=== PATIENT | female | born 1945 | race Caucasian/White ===

== ENCOUNTER → 2016-11-18 | Outpatient (CLI) | payer MEDICARE, OTHER ==
--- NOTE | 2016-11-18 10:30 | US ---
EXAM DESCRIPTION: Thyroid CLINICAL HISTORY: 70 years, Female, THYROID NODULE COMPARISON: FINDINGS: Right lobe 4.2 x 1.2 x 1.8 cm. Left lobe 5.5 x 2.5 x 2.1 cm. Isthmus 3 mm. Several small hypoechoic nodules identified on the right. The largest upper portion measuring 7 x 9 x 6 mm. In the lower portion 5 x 5 x 4 mm hypoechoic nodule. On the left side a large complex mixed solid and cystic mass 3.2 x 2.8 x 3.0 cm. This large nodule shows slight peripheral vascularity but no definite calcification. IMPRESSION: Findings most compatible with multinodular goiter. The nodules in the right side appear almost certainly benign. Large left-sided nodule considered probably benign but follow-up would be recommended. Electronically signed by: Rd Phillip MD 11/18/2016 10:29 AM CDT
== END | disposition home or self-care (01) ==
LOC: US 13:13
PROVIDERS: ATTEND Family Medicine
DX: E04.1 Nontoxic single thyroid nodule (principal)

== ENCOUNTER → 2017-01-22 | Outpatient (CLI) | payer MEDICARE, OTHER | LOC: GMAJ 10:59 | PROVIDERS: ATTEND Family Medicine | DX: I10 Essential (primary) hypertension (principal) ==

== ENCOUNTER → 2017-07-07 | Outpatient (CLI) | payer MEDICARE, OTHER | LOC: GMAJ 12:27 | PROVIDERS: ATTEND Family Medicine | DX: M15.0 Primary generalized (osteo)arthritis (principal) ==

== ENCOUNTER → 2018-06-08 | Outpatient (CLI) | payer MEDICARE, OTHER | LOC: GMAJ 15:49 | PROVIDERS: ATTEND Family Medicine | DX: M15.0 Primary generalized (osteo)arthritis (principal); I10 Essential (primary) hypertension ==

== ENCOUNTER → 2018-06-10 | Outpatient (CLI) | payer MEDICARE, OTHER ==
--- NOTE | 2018-06-10 12:28 | MRI ---
EXAM DESCRIPTION: Lumbar Spine w/o Contrast CLINICAL HISTORY: 72 years Female, LEFT SIDE SCIATICA COMPARISON: None available. TECHNIQUE: Multiplanar multiecho imaging of the lumbar spine was performed without intravenous contrast administration. FINDINGS: Levoscoliosis of the lumbar spine is noted. The vertebral body heights are well-maintained with no acute compression deformity. Multilevel intervertebral disc space narrowing is noted. The conus medullaris terminates at L1 vertebral body. The visualized spinal cord demonstrates no signal abnormality. L1-L2: Bilateral facet arthropathy with no central canal stenosis. Mild left neural foraminal narrowing is noted. L2-L3: Grade 1 retrolisthesis, posterior disc osteophyte complex and facet arthropathy with no central canal stenosis. There is moderate bilateral neural foraminal narrowing, worse on the left side. L3-L4: Grade 1 retrolisthesis, posterior disc osteophyte complex and facet arthropathy with resultant mild central canal stenosis and moderate to severe bilateral neural foraminal narrowing. L4-L5: Posterior disc osteophyte complex and facet arthropathy with no central canal stenosis. There is severe right and [id number] left neural foraminal narrowing. L5-S1: Grade 1 anterolisthesis, posterior disc osteophyte complex and facet arthropathy with resultant moderate central canal stenosis and severe bilateral neural foraminal narrowing. The visualized prevertebral and paravertebral soft tissues appear unremarkable. IMPRESSION: Multilevel degenerative disc disease and facet arthropathy throughout the lumbar spine with variable degrees of neural foraminal narrowing, worse from L3-L4 through L5-S1 levels. Electronically signed by: Maira Chowdhury MD 06/10/2018 12:25 PM CDT
== END ==
LOC: MRI 07:00
PROVIDERS: ATTEND Family Medicine
DX: M54.32 Sciatica, left side (principal); M51.36 Other intervertebral disc degeneration, lumbar region

== ENCOUNTER → 2019-07-07 | Outpatient (CLI) | payer MEDICARE, OTHER ==
--- NOTE | 2019-07-07 07:49 | RAD ---
EXAM DESCRIPTION: Lumbar Spine 5 Views CLINICAL HISTORY: 73 years Female, LOW BACK PAIN COMPARISON: MRI June 10, 2018 FINDINGS: 5 views of the lumbar spine were obtained. Postoperative changes at L3 and L4. No vertebral body fracture. Grade 1 or grade 2 anterolisthesis at L5-S1, stable. Grade 1 retrolisthesis at L3-4 and L2-3, also stable. Mild to moderate dextroscoliosis. Advanced degenerative disc disease extending from L2-3 through L5-S1 with facet joint degeneration at the same levels. Less advanced disc space narrowing at L1-2. Bilateral oblique views show bilateral neural foraminal stenosis at L2-3 and L3-4. Mural calcification in the abdominal aorta without apparent aneurysm. IMPRESSION: Advanced multilevel degenerative changes including degenerative disc and facet joint disease with scoliosis, chronic subluxation and neural foraminal stenosis as detailed above. Electronically signed by: Paulo Guardado MD 07/07/2019 7:47 AM CDT
== END ==
LOC: RAD 07:20
PROVIDERS: ATTEND Family Medicine Sports Medicine
DX: M48.062 Spinal stenosis, lumbar region with neurogenic claudication (principal); M51.36 Other intervertebral disc degeneration, lumbar region; M53.86 Other specified dorsopathies, lumbar region; M41.9 Scoliosis, unspecified; M99.13 Subluxation complex (vertebral) of lumbar region; M43.16 Spondylolisthesis, lumbar region; Z98.890 Other specified postprocedural states

== ENCOUNTER → 2020-01-17 | Outpatient (CLI) | payer MEDICARE, OTHER ==
--- NOTE | 2020-01-18 08:46 | RAD ---
EXAM DESCRIPTION: Lumbar Spine 5 Views CLINICAL HISTORY: 74 years Female, SPONDYLOLISTHESIS, LUMBOSACRAL REGION COMPARISON: 07/07/2019 Findings: Five view(s)/radiograph(s) 27 degrees rightward curvature of the lumbar spine apex at L2 5 nonrib-bearing vertebral bodies. Grade 1 anterolisthesis L4 on L5 and L5 on S1. Similar degenerative retrolisthesis L2 on L3 and L3 on L4. No evidence of instability. No acute fracture or subluxation. Similar multilevel lumbar spondylosis most pronounced at L2/L3. Similar L2 inferior endplate degenerative change. Similar facet hardware. Calcified uterine fibroid. There are two cylindrical densities overlying the right sacroiliac joint only definitively visualized on the frontal radiograph, and cannot be further localized. IMPRESSION: Similar multilevel lumbar spondylosis. No evidence of instability. Electronically signed by: Get Levy MD 01/18/2020 8:45 AM CDT
== END ==
LOC: RAD 15:15
PROVIDERS: ATTEND Family Medicine Sports Medicine
DX: M43.17 Spondylolisthesis, lumbosacral region (principal); M47.896 Other spondylosis, lumbar region

== ENCOUNTER → 2020-05-23 | Outpatient (CLI) | payer MEDICARE, OTHER ==
--- NOTE | 2020-05-23 12:33 | CT ---
Study: CT of the Right Hip. Indication: SACROILIITIS Technique: Axial CT images were acquired through the right hip without intravenous contrast. Coronal and sagittal reformats performed. This exam was performed according to our departmental dose-optimization program, which includes automated exposure control, adjustment of the mA and/or kV according to patient size and/or use of iterative reconstruction technique. Comparison: None. Findings: Partial visualization degenerative and post surgical changes lower lumbar spine. Scattered atherosclerosis. Calcified uterine fibroids. Tiny fat-containing right inguinal hernia. 2 right sacroiliac joint grafts are present. No osseous fusion across the right SI joint. 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 No acute fracture identified in this osteopenic patient. Mild to moderate right hip osteoarthritis with punctate ossification of the right hip labrum superiorly. 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 No osseous fusion across the joint space. Mild to moderate right hip osteoarthritis. Additional findings as above. Electronically signed by: Thor Mckenzie MD 05/23/2020 12:31 PM [facility]
== END ==
LOC: CT 08:43
PROVIDERS: ATTEND Family Medicine Sports Medicine
DX: M46.1 Sacroiliitis, not elsewhere classified (principal); M16.11 Unilateral primary osteoarthritis, right hip; M47.898 Other spondylosis, sacral and sacrococcygeal region